=== PATIENT | female | born 1950 | race Caucasian/White ===

== ENCOUNTER → 2022-02-17 | Outpatient (CLI) | payer MEDICAID, MEDICARE | LOC: M RAD 10:40 | PROVIDERS: ATTEND Nurse Practitioner Family | DX: Z87.891 Personal history of nicotine dependence (principal) ==

== ENCOUNTER → 2022-03-04 | Outpatient (CLI) | payer MEDICARE ==
[~2022-03-04] MED LIST: METHACHOLINE KIT (J7674) INH ONE
== END ==
LOC: M CARPUL 08:59
PROVIDERS: ATTEND Nurse Practitioner Family
DX: R06.00 Dyspnea, unspecified (principal)
CPT/HCPCS: 94070; 95070; J7674